=== PATIENT | male | born 1985 | race Two or more races ===

== ENCOUNTER 2025-06-01 01:45 | Emergency (ER) | payer SELFPAY ==
[2025-06-01 01:58] VITALS: BMI 23.3
--- NOTE | 2025-06-01 02:10 | PD.EDPSYCH ---
ED Psych RME/HPI General Chief Complaint: Psychiatric Symptoms Stated Complaint: MENTAL EVAL Time Seen by Provider: 06/01/25 02:12 Arrival date/time: 06/01/25 01:45 RME / HPI RME / HPI Narrative: DR. AMBROSIO MAIN ED EVALUATION: 40 y/o male with Hx of Recreational Drug Use, Alcohol Use, and Depression BIB [facility] from home presents to ED c/o suicidal ideation and aggression x [employer]IST[employer]. Patient was placed on a 5150 hold due to fighting with his family and repeatedly saying, just kill me . Per , patient's mother recently from [place] which appears to be gravely affecting patient. Patient admits to having a 12-pack of beer tonight. No other concerns or complaints expressed at this time. Related Data Previous Rx's ?Medication ?Instructions ?Recorded cyclobenzaprine 10 mg tablet 10 mg PO TID PRN muscle spasm #14 01/28/19 tabs meloxicam 15 mg tablet (Mobic) 15 mg PO QDAY #14 tabs 01/28/19 albuterol sulfate 2.5 mg/3 mL 2.5 mg (3 mL) inhalation Q4H PRN 05/02/20 (0.083 %) solution for nebulization shortness of breath or wheezing #75 mL albuterol sulfate 90 mcg/actuation 2 puff inhalation Q4H PRN 05/02/20 aerosol inhaler shortness of breath or wheezing #18 grams czrjkqgiqimazjg-ontcajomagbgmuy-KD 5 ml PO Q6H PRN cough/congestion 05/02/20 2 mg-30 mg-10 mg/5 mL oral syrup #240 mL (Bromfed DM) compressor, for nebulizer #1 ea 05/02/20 Allergies Allergy/AdvReac Type Severity Reaction Status Date / Time haloperidol Allergy Unknown Verified 01/28/19 15:17 Review of Systems Review of Systems Systems Reviewed: All systems reviewed, normal except as documented Past Medical History Past Medical History RESPIRATORY: Positive Respiratory Disorders and Asthma PSYCHO/SOCIAL: Positive Depression Social History SMOKING STATUS: Current every day smoker SUBSTANCE USE: marijuana ED Exam Narrative Physical exam: Generally patient is alert but agitated, heart is regular rate and rhythm, lungs clear to auscultation equal bilaterally, abdomen soft bowel sounds present nondistended nontender, skin shows abrasions to the left upper back but no lacerations. Skin is cool and dry. Neurologic exam patient is alert and oriented but somewhat combative. No focal motor deficits., Eyes pupils equal round reactive to light, head normocephalic atraumatic Course Quality Measures none Orders Category Date Time Status Acetaminophen Stat Lab 06/01/25 02:13 Ordered Alcohol, Blood Medical Stat Lab 06/01/25 02:13 Ordered CBC Stat Lab 06/01/25 02:13 Ordered CMP [Comprehensive Metabolic Panel] Stat Lab 06/01/25 02:13 Ordered Drug Screen,Urine Stat Lab 06/01/25 02:13 Ordered Vital Signs Vital signs: Vital Signs Temperature 97.5 F 06/01/25 02:17 Pulse Rate 120 H 06/01/25 02:17 Respiratory Rate 20 06/01/25 02:17 Blood Pressure 112/78 06/01/25 02:17 Pulse Oximetry (%) 98 06/01/25 02:17 Oxygen Delivery Method Room Air 06/01/25 02:17 Psych MDM Narrative MDM Narrative:: Scribe Attestation: I, Marge Tinajero, am scribing for and in the presence of Dr. Ambrosio. Provider Notation: Although this document has been carefully reviewed, there may still be some phonetic and other typographical errors. These errors are purely grammatical due to imperfections in the software program and should not be construed in any way to compromise the substance of the patient's medical care during this visit. Patient denies to me wanting to hurt himself or anybody else. He got some bad news today about his mom having cancer. He originally threatened to family members that he wanted to kill himself. This seems to be a situational reaction. He however was placed on a 5150 by [facility]. Patient ran out of the ambulance doors at this emergency room and disappeared. We attempted to find the patient but were unsuccessful. Patient data External records reviewed:: [facility] [place] previous records (No recent ED records available for review.) Clinical information provided by:: patient and law enforcement Social determinants that could affect healthcare access:: none Patient has the following chronic illnesses:: None How is presenting disease/condition affected by chronic disease/condition?: exacerbated by Evaluation data The following diagnostics were reviewed and interpreted by me:: lab results Lab and/or radiology exams considered but not ordered:: None Interpretation Summary: See MDM above. Medications / Prescriptions Medications or Prescriptions considered but not ordered:: None Medication administrations:: See above if any. Consultations Consultation(s) initiated? (list below): No Diagnosis Psych Differential Diagnosis: acute psychosis, chronic schizophrenia, suicidal ideation, bipolar disorder, depression, drug-induced psychotic disorder and acute anxiety Most likely diagnosis given after review of the tests above:: None Admission Indicated Admission indicated?: not indicated Explain why admission is indicated or not indicated:: Pending psych evaluation. Admission Request Was there a request for admission?: No Disposition Plan Disposition Plan: other (specify) (Patient signed out to oncoming ED physician at 6 AM.) Discharge Plan Plan Patient Disposition: Elopement Prescriptions/Referrals Prescriptions/Med Rec: No Action meloxicam [Mobic] 15 mg tablet 15 mg PO QDAY Qty: 14 0RF cyclobenzaprine 10 mg tablet 10 mg PO TID PRN (Reason: muscle spasm) Qty: 14 0RF albuterol sulfate 90 mcg/actuation HFA aerosol inhaler 2 puff IH Q4H PRN (Reason: shortness of breath or wheezing) Qty: 18 0RF albuterol sulfate 2.5 mg /3 mL (0.083 %) solution for nebulization 2.5 mg IH Q4H PRN (Reason: shortness of breath or wheezing) Qty: 75 0RF (DME) compressor, for nebulizer Device See Rx Instructions .ROUTE .MEDSUPPLY Qty: 1 0RF Rx Instructions: As directed bevmhptlfokdwuo-wozjldvhk-RZ [Bromfed DM] 2-30-10 mg/5 mL syrup 5 ml PO Q6H PRN (Reason: cough/congestion) Qty: 240 0RF Problem List Clinical Impression: Reaction, situational Patient/Caregiver Discharge Instructions Print Language: Chilean
[2025-06-01 02:17] VITALS: BP 112/78; PULSE 120; RESP 20; TEMP 36.4; O2SAT 98
--- NOTE | 2025-06-01 02:23 | PC.NURSE ---
PT WALKED OUT OF ROOM. PT INSTRUCTED BY SECURITY AND MYSELF TO GO BACK INTO ROOM. PT CONTINUED TO WALK OUT OF BACK DOOR EXIT. SECURITY FOLLOWED BEHIND PT WALKING OUT OF DOOR.
--- NOTE | 2025-06-01 02:25 | PC.NURSE ---
I CONTACTED SHAJI FROM [facility] AND MADE THEM AWARE OF PT LEAVING.
--- NOTE | 2025-06-01 02:48 | PC.NURSE ---
PT WITH SECURITY AT [facility] KEPT WALKING OUT OF ROOM. CODE [facility] INITIATED BUT PT WAS OUT OF ER THROUGH [facility]. [facility] AND [facility] WERE NOTIFIED AND PT WAS OBSERVED WALKING EAST ON [address] WEARING A BLANKET WRAPPED AROUND HIM.
== END 2025-06-01 02:48 | disposition left against medical advice (07) ==
PROVIDERS: Emergency Provider Emergency Medicine
DX: Z04.6 Encounter for general psychiatric examination, requested by authority (principal); R45.851 Suicidal ideations; Z53.29 Procedure and treatment not carried out because of patient's decision for other reasons
CPT/HCPCS: 80053; 80307; 80320; 80329; 85025; 96127; 99281; G0480